=== PATIENT | male | born 1945 | race Caucasian/White ===

== ENCOUNTER 2021-12-19 08:46 | Emergency (ER) | payer MEDICARE, BC ==
[2021-12-19] MEDS ORDERED: VITAMIN D310 MC3 (08:59)
[2021-12-19] MEDS ORDERED: MULTI COMPLETE1 EACH PO (08:59)
[2021-12-19] MEDS ORDERED: ZINC50 M3 PO (08:59)
[2021-12-19] MEDS ORDERED: FISH OIL1 IU PO (08:59)
[2021-12-19] MEDS ORDERED: CALAN SR240 M1 PO (08:59)
[2021-12-19] MEDS ORDERED: MELOXICAM15 MG PO (08:59)
[2021-12-19 09:22] LABS: BASO # 0.05 K/mm3 (0.02-0.10); EOS % 1.2 % (0.0-4.0); HEMATOCRIT 38.7 % (42.0-52.0); HEMOGLOBIN 12.6 g/dL (13.5-18.0); LYMPH# 1.03 K/mm3 (1.50-4.00); MEAN CELL VOLUME 98 fl (78-100); MEAN CORPUSCULAR HEMOGLOBIN 32 pg (27-31); MEAN CORPUSCULAR HGB CONC 33 g/dL (33-37); MEAN PLATELET VOLUME 10.1 fl (7.4-10.4); MONO # 0.72 K/mm3 (0.20-0.80); NEU # 13.99 K/mm3 (1.40-6.50); PLATELET COUNT 174 K/mm3 (130-400); RED BLOOD COUNT 3.97 M/mm3 (4.20-5.60); RED CELL DISTRIBUTION WIDTH 15.3 % (11.5-14.5)
[2021-12-19 09:47] LABS: ALBUMIN 3.4 g/dL (3.4-4.8); POTASSIUM 4.5 mmol/L (3.5-5.1)
[2021-12-19 09:48] LABS: CALCIUM 9.1 mg/dL (8.3-10.5)
[2021-12-19 09:51] LABS: TOTAL BILIRUBIN 0.7 mg/dL (0.2-1.2)
[2021-12-19 10:49] LABS: URINE APPEARANCE CLEAR; URINE BILIRUBIN NEGATIVE (NEGATIVE); URINE BLOOD NEGATIVE (NEGATIVE); URINE COLOR YELLOW; URINE GLUCOSE NEGATIVE (NEGATIVE); URINE KETONE NEGATIVE (NEGATIVE); URINE LEUKOCYTE ESTERASE NEGATIVE (NEGATIVE); URINE MUCUS PRESENT (NOT PRESENT); URINE NITRATE NEGATIVE (NEGATIVE); URINE PROTEIN(semi-quant) NEGATIVE (NEGATIVE); URINE UROBILINOGEN NORMAL (NORMAL); URINE WBC 0-1 /hpf (0-3)
[2021-12-19 11:36] VITALS: BP 130/84
== END 2021-12-19 11:38 | disposition home or self-care (01) ==
LOC: ED 08:46
PROVIDERS: Family Medicine
DX: D64.9 Anemia, unspecified (principal); T67.9XXA Effect of heat and light, unspecified, initial encounter; R74.01 Elevation of levels of liver transaminase levels; Z87.891 Personal history of nicotine dependence